=== PATIENT | female | born 1970 ===

== ENCOUNTER 2021-08-06 21:42 | Inpatient (IN) | payer MEDICARE, OTHER ==
[~2021-08-06] VITALS: Ht 154.9 cm; Wt 57.2 kg
[2021-08-06] MEDS ORDERED: PRAZ2CAP2 PO (22:31)
[2021-08-06] MEDS ORDERED: CHLO25TA23 PO (22:31)
[2021-08-06] MEDS ORDERED: BUSP10TA3 PO (22:31)
[2021-08-07] MEDS ORDERED: MAGNESIUM HYDROXIDE 30 ML LIQUID UDC PO PRN (00:45)
[2021-08-07] MEDS: TEMAZEPAM 7.5 MG CAPSULE PO PRN (01:34)
[2021-08-07] MEDS ORDERED: VARE1TAB24 PO (02:31)
[2021-08-07] MEDS ORDERED: HYDR-3980 PO (02:31)
[2021-08-07] MEDS ORDERED: PRAZ5CAP2 PO (02:31)
[2021-08-07] MEDS ORDERED: QUET50TA PO (02:31)
[2021-08-07] MEDS ORDERED: IBUP-1957 PO (02:31)
[2021-08-07] MEDS ORDERED: GABA600T12 PO (02:31)
[2021-08-07 08:15] VITALS: BP 146/95
[2021-08-07] MEDS: GABAPENTIN 300 MG CAPSULE PO SCH ×3 (11:07→18:00)
[2021-08-07] MEDS: busPIRone 10 MG TABLET PO SCH ×3 (11:08→20:39)
[2021-08-07] MEDS ORDERED: CLOM50CA2 PO (12:19)
[2021-08-07] MEDS ORDERED: hydrALAZINE HCL 10 MG TABLET PO PRN (14:30)
[2021-08-07 15:42] VITALS: BP 125/88
[2021-08-07 16:10] VITALS: BP 125/88
[2021-08-07] MEDS: HYDROCODONE/APAP 10-325 MG TABLET PO PRN ×2 (16:30→20:47)
[2021-08-07 20:00] VITALS: BP 124/89
[2021-08-07] MEDS: PRAZOSIN HCL 1 MG CAPSULE PO SCH (20:39)
[2021-08-07] MEDS: SERTRALINE HCL 50 MG TABLET PO SCH (20:40)
[2021-08-07] MEDS ORDERED: PRAZOSIN HCL 15 MG PO SCH (21:00)
[2021-08-08] MEDS: LORAZEPAM 1 MG TABLET PO PRN (03:26)
[2021-08-08 07:44] VITALS: BP 106/71
[2021-08-08] MEDS: GABAPENTIN 300 MG CAPSULE PO SCH ×3 (08:41→16:47)
[2021-08-08] MEDS: busPIRone 10 MG TABLET PO SCH ×3 (08:41→16:47)
[2021-08-08] MEDS: HYDROCODONE/APAP 10-325 MG TABLET PO PRN ×2 (09:03→20:19)
[2021-08-08] MEDS: ATORVASTATIN 40 MG TABLET PO SCH ×2 (09:56→20:18)
[2021-08-08 16:13] VITALS: BP 129/92
[2021-08-08 20:11] VITALS: BP 105/80
[2021-08-08] MEDS: SERTRALINE HCL 50 MG TABLET PO SCH (20:19)
[2021-08-08] MEDS: PRAZOSIN HCL 1 MG CAPSULE PO SCH (20:19)
[2021-08-08] MEDS: TEMAZEPAM 7.5 MG CAPSULE PO PRN (22:56)
[2021-08-09] MEDS: LORAZEPAM 1 MG TABLET PO PRN (01:18)
[2021-08-09] MEDS: HYDROCODONE/APAP 10-325 MG TABLET PO PRN ×2 (06:43→17:00)
[2021-08-09 07:41] VITALS: BP 99/71
[2021-08-09] MEDS: GABAPENTIN 300 MG CAPSULE PO SCH ×3 (08:39→16:50)
[2021-08-09] MEDS: busPIRone 10 MG TABLET PO SCH ×3 (08:39→16:51)
[2021-08-09] MEDS: MAG HYDROX/AL HYDROX/SIMETH 30 ML LIQUID UDC PO PRN (09:28)
[2021-08-09] MEDS ORDERED: LOPERAMIDE HCL 2 MG CAPSULE PO ONE (13:00)
[2021-08-09] MEDS: ONDANSETRON HCL 4 MG TABLET PO PRN ×2 (13:09→21:42)
[2021-08-09 16:17] VITALS: BP 110/78
[2021-08-09 19:59] VITALS: BP 118/89
[2021-08-09] MEDS ORDERED: TEMAZEPAM 15 MG CAPSULE PO ONE (21:00)
[2021-08-09] MEDS: ATORVASTATIN 40 MG TABLET PO SCH (21:14)
[2021-08-09] MEDS: SERTRALINE HCL 50 MG TABLET PO SCH (21:15)
[2021-08-09] MEDS: PRAZOSIN HCL 1 MG CAPSULE PO SCH (21:15)
[2021-08-09] MEDS: LOPERAMIDE HCL 2 MG CAPSULE PO PRN (21:41)
[2021-08-10] MEDS: HYDROCODONE/APAP 10-325 MG TABLET PO PRN ×2 (06:23→16:55)
[2021-08-10 07:30] VITALS: BP 98/68
[2021-08-10] MEDS: GABAPENTIN 300 MG CAPSULE PO SCH (08:09)
[2021-08-10] MEDS: busPIRone 10 MG TABLET PO SCH ×3 (08:09→16:50)
[2021-08-10] MEDS ORDERED: TEMAZEPAM 7.5 MG CAPSULE PO PRN (10:15)
[2021-08-10] MEDS: GABAPENTIN 400 MG CAPSULE PO SCH ×2 (12:24→16:50)
[2021-08-10] MEDS ORDERED: GABAPENTIN 300 MG CAPSULE PO SCH (13:00)
[2021-08-10] MEDS: LORAZEPAM 1 MG TABLET PO PRN ×2 (13:29→22:36)
[2021-08-10] MEDS: ACETAMINOPHEN 325 MG TABLET PO PRN (14:23)
[2021-08-10 16:00] VITALS: BP 118/84
[2021-08-10 20:00] VITALS: BP 120/86
[2021-08-10] MEDS: SERTRALINE HCL 50 MG TABLET PO SCH (20:24)
[2021-08-10] MEDS: ATORVASTATIN 40 MG TABLET PO SCH (20:24)
[2021-08-10] MEDS: ONDANSETRON HCL 4 MG TABLET PO PRN (21:14)
[2021-08-10] MEDS: PRAZOSIN HCL 1 MG CAPSULE PO SCH (21:15)
[2021-08-10] MEDS: LOPERAMIDE HCL 2 MG CAPSULE PO PRN (23:05)
[2021-08-11] MEDS: TEMAZEPAM 15 MG CAPSULE PO PRN ×2 (00:06→22:43)
[2021-08-11 07:49] VITALS: BP 108/70
[2021-08-11 08:24] LABS: HEMATOCRIT 37.9 % (31.2-41.9); MEAN CORPUSCULAR HEMOGLOBIN 31.9 uug (24.7-32.8); MEAN CORPUSCULAR VOLUME 93.2 fL (75.5-95.3); PLATELET COUNT (AUTO) 258 K/uL (179-408)
[2021-08-11] MEDS: busPIRone 10 MG TABLET PO SCH ×3 (08:38→16:13)
[2021-08-11] MEDS: GABAPENTIN 400 MG CAPSULE PO SCH ×3 (08:38→20:34)
[2021-08-11] MEDS: HYDROCODONE/APAP 10-325 MG TABLET PO PRN ×2 (08:52→18:09)
[2021-08-11 08:57] LABS: BILIRUBIN,TOTAL 0.3 mg/dL (0.2-1.0); CREATININE 0.8 mg/dL (0.6-1.3); PHOSPHOROUS 3.9 mg/dL (2.5-4.9); POTASSIUM 3.5 mmol/L (3.5-5.1)
[2021-08-11 09:03] LABS: THYROID STIMULATING HORMONE 1.816 mIU/mL (0.358-3.740)
[2021-08-11] MEDS: ACETAMINOPHEN 325 MG TABLET PO PRN (16:13)
[2021-08-11 16:58] VITALS: BP 120/88
[2021-08-11 20:00] VITALS: BP 116/89
[2021-08-11] MEDS: SERTRALINE HCL 50 MG TABLET PO SCH (20:35)
[2021-08-11] MEDS: ATORVASTATIN 40 MG TABLET PO SCH (20:35)
[2021-08-11] MEDS ORDERED: PRAZOSIN HCL 1 MG CAPSULE ONE ×2 (21:32)
[2021-08-11] MEDS: LORAZEPAM 1 MG TABLET PO PRN (21:58)
[2021-08-11] MEDS: PRAZOSIN HCL 1 MG CAPSULE PO SCH (22:29)
[2021-08-12 07:43] VITALS: BP 103/61
[2021-08-12] MEDS: busPIRone 10 MG TABLET PO SCH ×3 (08:31→17:00)
[2021-08-12] MEDS: HYDROCODONE/APAP 10-325 MG TABLET PO PRN ×8 (08:32→23:37)
[2021-08-12] MEDS: GABAPENTIN 400 MG CAPSULE PO SCH ×3 (08:32→21:10)
[2021-08-12] MEDS: LOPERAMIDE HCL 2 MG CAPSULE PO PRN ×2 (09:11→13:09)
[2021-08-12] MEDS: LORAZEPAM 1 MG TABLET PO PRN ×2 (15:10→21:10)
[2021-08-12 16:00] VITALS: BP 136/103
[2021-08-12] MEDS ORDERED: IV NORMAL SALINE 250 ML IV ONE (19:47)
[2021-08-12] MEDS ORDERED: IOHEXOL 300MG/ML 100 ML INFUS..BTL ONE (19:47)
[2021-08-12] MEDS ORDERED: SWABABLE VALVE TRANSFER SET EA MC ONE (19:47)
[2021-08-12 20:02] VITALS: BP 139/96
[2021-08-12] MEDS: ATORVASTATIN 40 MG TABLET PO SCH (21:00)
[2021-08-12] MEDS: SERTRALINE HCL 50 MG TABLET PO SCH (21:10)
[2021-08-12] MEDS: PRAZOSIN HCL 1 MG CAPSULE PO SCH (21:10)
[2021-08-13] MEDS: TEMAZEPAM 15 MG CAPSULE PO PRN (01:31)
[2021-08-13] MEDS: LORAZEPAM 1 MG TABLET PO PRN ×2 (05:29→20:41)
[2021-08-13 08:00] VITALS: BP 113/76
[2021-08-13] MEDS: HYDROCODONE/APAP 10-325 MG TABLET PO PRN ×3 (08:47→23:19)
[2021-08-13] MEDS: GABAPENTIN 400 MG CAPSULE PO SCH ×3 (08:47→20:41)
[2021-08-13] MEDS: busPIRone 10 MG TABLET PO SCH ×3 (08:47→17:36)
[2021-08-13 16:00] VITALS: BP 124/56
[2021-08-13] MEDS: PRAZOSIN HCL 1 MG CAPSULE PO SCH (20:41)
[2021-08-13] MEDS: ATORVASTATIN 40 MG TABLET PO SCH (20:41)
[2021-08-13] MEDS: SERTRALINE HCL 50 MG TABLET PO SCH (20:41)
[2021-08-13 21:16] VITALS: BP 107/71
[2021-08-14] MEDS: TEMAZEPAM 15 MG CAPSULE PO PRN (01:12)
[2021-08-14 07:30] VITALS: BP 113/80
[2021-08-14] MEDS: busPIRone 10 MG TABLET PO SCH ×3 (08:23→16:13)
[2021-08-14] MEDS: GABAPENTIN 400 MG CAPSULE PO SCH ×3 (08:23→20:21)
[2021-08-14] MEDS: HYDROCODONE/APAP 10-325 MG TABLET PO PRN ×3 (08:24→23:02)
[2021-08-14] MEDS: LORAZEPAM 1 MG TABLET PO PRN ×2 (13:40→20:21)
[2021-08-14 16:00] VITALS: BP 127/85
[2021-08-14] MEDS: LOPERAMIDE HCL 2 MG CAPSULE PO PRN (16:28)
[2021-08-14 20:00] VITALS: BP 122/86
[2021-08-14] MEDS: PRAZOSIN HCL 1 MG CAPSULE PO SCH (20:20)
[2021-08-14] MEDS: SERTRALINE HCL 50 MG TABLET PO SCH (20:21)
[2021-08-14] MEDS: ATORVASTATIN 40 MG TABLET PO SCH (20:21)
[2021-08-14] MEDS: MAG HYDROX/AL HYDROX/SIMETH 30 ML LIQUID UDC PO PRN (23:36)
[2021-08-15] MEDS: LORAZEPAM 1 MG TABLET PO PRN ×2 (05:27→22:01)
[2021-08-15] MEDS: LOPERAMIDE HCL 2 MG CAPSULE PO PRN ×3 (05:27→21:46)
[2021-08-15 07:30] VITALS: BP 105/68
[2021-08-15] MEDS: GABAPENTIN 400 MG CAPSULE PO SCH ×3 (08:03→20:59)
[2021-08-15] MEDS: busPIRone 10 MG TABLET PO SCH ×3 (08:03→16:53)
[2021-08-15 08:24] LABS: HEMATOCRIT 33.4 % (31.2-41.9); MEAN CORPUSCULAR HEMOGLOBIN 31.8 uug (24.7-32.8); MEAN CORPUSCULAR VOLUME 94.2 fL (75.5-95.3); PLATELET COUNT (AUTO) 266 K/uL (179-408)
[2021-08-15 08:26] LABS: NEUTROPHILS % (MANUAL) 0 % (42-75)
[2021-08-15 08:29] LABS: BILIRUBIN,TOTAL 0.2 mg/dL (0.2-1.0); CREATININE 0.8 mg/dL (0.6-1.3); PHOSPHOROUS 3.2 mg/dL (2.5-4.9); POTASSIUM 3.4 mmol/L (3.5-5.1); TOTAL PROTEIN, SERUM 7.2 g/dL (6.4-8.2)
[2021-08-15] MEDS: HYDROCODONE/APAP 10-325 MG TABLET PO PRN ×2 (08:47→17:30)
[2021-08-15] MEDS ORDERED: POTASSIUM CHLORIDE 20 MEQ TAB.PRT.SR PO ONE (09:30)
[2021-08-15 16:00] VITALS: BP 123/85
[2021-08-15 20:29] VITALS: BP 130/86
[2021-08-15] MEDS: PRAZOSIN HCL 1 MG CAPSULE PO SCH (20:58)
[2021-08-15] MEDS: ATORVASTATIN 40 MG TABLET PO SCH (20:59)
[2021-08-15] MEDS: SERTRALINE HCL 50 MG TABLET PO SCH (20:59)
[2021-08-16 07:54] VITALS: BP 120/81
[2021-08-16] MEDS: GABAPENTIN 400 MG CAPSULE PO SCH ×3 (08:21→21:25)
[2021-08-16] MEDS: busPIRone 10 MG TABLET PO SCH ×3 (08:21→16:15)
[2021-08-16] MEDS: HYDROCODONE/APAP 10-325 MG TABLET PO PRN ×2 (08:34→20:37)
[2021-08-16] MEDS: LOPERAMIDE HCL 2 MG CAPSULE PO PRN (10:44)
[2021-08-16] MEDS: LORAZEPAM 1 MG TABLET PO PRN (15:11)
[2021-08-16 15:46] VITALS: BP 115/76
[2021-08-16 21:10] VITALS: BP 112/82
[2021-08-16] MEDS: PRAZOSIN HCL 1 MG CAPSULE PO SCH (21:25)
[2021-08-16] MEDS: ATORVASTATIN 40 MG TABLET PO SCH (21:25)
[2021-08-16] MEDS: SERTRALINE HCL 100 MG TABLET PO SCH (21:25)
[2021-08-17] MEDS: TEMAZEPAM 15 MG CAPSULE PO PRN (00:17)
[2021-08-17] MEDS: busPIRone 10 MG TABLET PO SCH ×3 (08:15→16:23)
[2021-08-17] MEDS: GABAPENTIN 400 MG CAPSULE PO SCH ×3 (08:15→20:09)
[2021-08-17 08:26] LABS: CREATININE 0.7 mg/dL (0.6-1.3); POTASSIUM 3.9 mmol/L (3.5-5.1)
[2021-08-17 09:08] VITALS: BP 108/66
[2021-08-17] MEDS: HYDROCODONE/APAP 10-325 MG TABLET PO PRN (12:09)
[2021-08-17] MEDS: LORAZEPAM 1 MG TABLET PO PRN ×2 (14:33→23:09)
[2021-08-17 15:06] VITALS: BP 118/62
[2021-08-17 20:02] VITALS: BP 123/88
[2021-08-17] MEDS: PRAZOSIN HCL 1 MG CAPSULE PO SCH (20:11)
[2021-08-17] MEDS: SERTRALINE HCL 100 MG TABLET PO SCH (20:11)
[2021-08-17] MEDS: ATORVASTATIN 40 MG TABLET PO SCH (20:11)
[2021-08-17] MEDS ORDERED: LORAZEPAM 1 MG TABLET ONE (22:11)
[2021-08-18] MEDS: TEMAZEPAM 15 MG CAPSULE PO PRN ×2 (00:35→23:59)
[2021-08-18 08:30] VITALS: BP 106/70
[2021-08-18] MEDS: GABAPENTIN 400 MG CAPSULE PO SCH ×3 (09:01→20:22)
[2021-08-18] MEDS: busPIRone 10 MG TABLET PO SCH ×3 (09:02→18:55)
[2021-08-18] MEDS: HYDROCODONE/APAP 10-325 MG TABLET PO PRN (11:16)
[2021-08-18] MEDS: LORAZEPAM 1 MG TABLET PO PRN ×2 (14:43→22:18)
[2021-08-18 16:00] VITALS: BP 115/78
[2021-08-18] MEDS: SERTRALINE HCL 100 MG TABLET PO SCH (20:22)
[2021-08-18] MEDS: ATORVASTATIN 40 MG TABLET PO SCH (20:22)
[2021-08-18] MEDS: PRAZOSIN HCL 1 MG CAPSULE PO SCH (20:22)
[2021-08-18 22:19] VITALS: BP 121/83
[2021-08-19 09:42] VITALS: BP 126/78
[2021-08-19] MEDS: GABAPENTIN 400 MG CAPSULE PO SCH ×3 (09:43→20:14)
[2021-08-19] MEDS: busPIRone 10 MG TABLET PO SCH ×3 (09:43→17:15)
[2021-08-19] MEDS: HYDROCODONE/APAP 10-325 MG TABLET PO PRN ×2 (09:47→20:17)
[2021-08-19] MEDS: PRAZOSIN HCL 1 MG CAPSULE PO SCH (20:16)
[2021-08-19] MEDS: SERTRALINE HCL 100 MG TABLET PO SCH (20:16)
[2021-08-19] MEDS: ATORVASTATIN 40 MG TABLET PO SCH (20:17)
[2021-08-19 20:49] VITALS: BP 144/90
[2021-08-19] MEDS: LORAZEPAM 1 MG TABLET PO PRN (23:17)
[2021-08-20] MEDS: TEMAZEPAM 15 MG CAPSULE PO PRN (01:28)
[2021-08-20] MEDS: busPIRone 10 MG TABLET PO SCH ×2 (08:50→12:11)
[2021-08-20] MEDS: GABAPENTIN 400 MG CAPSULE PO SCH (08:50)
[2021-08-20] MEDS: HYDROCODONE/APAP 10-325 MG TABLET PO PRN (12:12)
== END 2021-08-20 14:00 | disposition home or self-care (01) | DRG 885 ==
LOC: ER 21:47 → GPS 08-07 00:37
PROVIDERS: ADMIT Psychiatry & Neurology Psychiatry; ATTEND Internal Medicine
DX: F33.9 Major depressive disorder, recurrent, unspecified (principal); A08.4 Viral intestinal infection, unspecified; T43.592D Poisoning by other antipsychotics and neuroleptics, intentional self-harm, subsequent encounter; F10.10 Alcohol abuse, uncomplicated; E78.5 Hyperlipidemia, unspecified; F12.90 Cannabis use, unspecified, uncomplicated; F43.10 Post-traumatic stress disorder, unspecified; K59.00 Constipation, unspecified; G89.29 Other chronic pain; M54.50 Low back pain, unspecified; Z91.51 Personal history of suicidal behavior; Z79.899 Other long term (current) drug therapy; R03.0 Elevated blood-pressure reading, without diagnosis of hypertension
CPT/HCPCS: 36415; 70030-TC; 74018; 83735; 84100; 84443; 85025; 86625; 86803; 87046; 87177; 89055; A4663; J7050; Q0162; Q9967